=== PATIENT | female | born 1985 | race Caucasian/White ===

== ENCOUNTER 2016-12-17 11:00 | Outpatient (RCR) | payer MEDICAID ==
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
== END 2017-01-12 10:21 | disposition home or self-care (01) ==
LOC: PT 11:00
PROVIDERS: ATTEND Obstetrics & Gynecology
DX: N94.12 Deep dyspareunia (principal); N94.5 Secondary dysmenorrhea; R10.2 Pelvic and perineal pain; N32.81 Overactive bladder; N93.8 Other specified abnormal uterine and vaginal bleeding; N87.0 Mild cervical dysplasia; M62.49 Contracture of muscle, multiple sites; M53.88 Other specified dorsopathies, sacral and sacrococcygeal region; M79.7 Fibromyalgia